=== PATIENT | female | born 1955 | race Caucasian/White ===

== ENCOUNTER → 2018-07-01 | Day surgery (SDC) | payer BC ==
[~2018-07-01] MED LIST: Lactated Ringers 1,000 ML IV SCH; Propofol 200 MG/20 ML SDV IV ONE
--- NOTE | 2018-07-01 12:39 | OR ---
DATE OF OPERATION: 07/01/2018 PREOPERATIVE DIAGNOSIS: SCREENING COLONOSCOPY. POSTOPERATIVE DIAGNOSIS: 1. MILD SIGMOID DIVERTICULOSIS. 2. TUBULAR ADENOMA, LESS THAN 0.5 CM. SURGEON: Sumanth Woo MD PROCEDURE: FULL-LENGTH COLONOSCOPY WITH SNARE POLYPECTOMY X1. ANESTHESIA: MAC via FORM CARPENTER. COMPLICATIONS: None. SPECIMEN: Approximately 0.5 cm tubular adenoma, distal sigmoid colon. FINDINGS: 1. Full-length colonoscopy. 2. Exljyea-[id number] sigmoid diverticulosis. 3. Tubular adenoma, distal sigmoid colon. RECOMMENDATIONS: Followup colonoscopy in 5 years. INDICATIONS: The patient was seen by her primary provider. She was due for a routine screening colonoscopy. DESCRIPTION OF PROCEDURE: The patient was prepped and draped, placed in the left lateral decubitus position. A lubricated Olympus colonoscope was inserted and easily advanced to the cecum. Direct visualization of the ileocecal valve and appendiceal orifice was accomplished. The bowel prep was adequate. Upon withdrawal of the scope, the cecum, ascending and transverse colon were completely unremarkable as was the descending colon. In the sigmoid colon, the patient had a few scattered diverticula, but very minimal in any severity. No signs of any colitis or bleeding sites were found. At around 30 to 35 cm, the patient had a small stalk tubular adenoma approximately 0.5 cm in size. It was removed with a small snare and suctioned into polyp trap #1. The rectosigmoid junction was unremarkable. The rectal vault was benign. Retroflexion showed no perianal lesions. Air was suctioned, scope removed without complication. THERESA/DIANNA /[id number]
== END ==
LOC: CC.SDS 07:58
PROVIDERS: ATTEND Family Medicine
DX: Z12.11 Encounter for screening for malignant neoplasm of colon (principal); D12.5 Benign neoplasm of sigmoid colon; K57.30 Diverticulosis of large intestine without perforation or abscess without bleeding; I10 Essential (primary) hypertension; E78.00 Pure hypercholesterolemia, unspecified; F32.9 Major depressive disorder, single episode, unspecified; Z87.891 Personal history of nicotine dependence; Z79.899 Other long term (current) drug therapy; Z88.2 Allergy status to sulfonamides
CPT/HCPCS: 45385; J2704; J7120

== ENCOUNTER 2024-07-21 09:19 | Day surgery (SDC) | payer MEDICARE ==
[2024-07-21] MEDS: Lactated Ringers 1,000 ML IV SCH (09:38)
[2024-07-21] MEDS ORDERED: fentaNYL 50 MCG/ML SDV ONE ×2 (10:12)
[2024-07-21] MEDS ORDERED: Midazolam 1 MG/ML 2 ML SDV ONE (10:12)
[2024-07-21] MEDS ORDERED: Propofol 200 MG/20 ML SDV ONE (10:12)
[2024-07-21] MEDS ORDERED: Ketamine 200 MG/20 ML MDV ONE (10:12)
[2024-07-21] MEDS ORDERED: Lidocaine 2% 20 ML MDV ONE (10:12)
[2024-07-21 13:37] VITALS: BP 127/69; PULSE 81
== END 2024-07-21 11:30 | disposition home or self-care (01) ==
LOC: CC.SDS 09:19
PROVIDERS: ATTEND Family Medicine
DX: Z12.11 Encounter for screening for malignant neoplasm of colon (principal); K29.50 Unspecified chronic gastritis without bleeding
CPT/HCPCS: 00813; 43239; 45378; 87081; 88305; J2003; J2250; J2704; J3010; J3490; J7120